=== PATIENT | male | born 1960 | race American Indian/Alaskan Native ===

== ENCOUNTER 2016-12-10 14:33 | Emergency (ER) | payer BC ==
[2016-12-10 15:31] LABS: Bacteria,Urine 1+ /HPF (Negative); Bilirubin,Urine NEG (Negative); Blood,Urine SM (Negative); Ketones,Urine TR mg/dL (Negative); Leukocyte Esterase,Urine NEG (Negative); Mucus,Urine FEW /HPF; Nitrite,Urine NEG (Negative)
[2016-12-10 15:44] LABS: Basophils % (Auto) 0.4 % (0.0-1.8); Hematocrit 35.1 % (35.5-45.6); Hemoglobin 11.6 gm/dl (11.8-15.2); Mean Corpuscular HGB Conc 33 % (32-34); Mean Corpuscular Hemoglobin 28 pg (28-32); Mean Corpuscular Volume 85 fl (84-94); Platelet Count 268 K/mm3 (140-440); Red Blood Count 4.14 M/mm3 (3.65-5.03); Red Cell Distribution Width 13.3 % (13.2-15.2); White Blood Count 12.5 K/mm3 (4.5-11.0)
[2016-12-10 16:04] LABS: Anion Gap 18 mmol/L; Blood Urea Nitrogen 21 mg/dL (9-20); Calcium 8.8 mg/dL (8.4-10.2); Carbon Dioxide 29 mmol/L (22-30); Chloride 92.4 mmol/L (98-107); Glucose 322 mg/dL (75-100); Potassium 3.7 mmol/L (3.6-5.0); Sodium 136 mmol/L (137-145)
[2016-12-11] MEDS ORDERED: NACL 0.9% 1000 ML 1,000 ML IV ONE (02:09)
[2016-12-11] MEDS ORDERED: ALUM-MAG HYDROX-SIMETH 200-200-20MG/5ML PO ONE (02:19)
[2016-12-11] MEDS ORDERED: ZOFRAN IV ONE (02:19)
[2016-12-11] MEDS ORDERED: BENADRYL IV ONE (02:19)
[2016-12-11] MEDS ORDERED: REGLAN IV ONE (02:19)
[2016-12-11] MEDS ORDERED: LIDOCAINE VISCOUS 2% PO ONE (02:19)
--- NOTE | 2016-12-11 05:15 | Emergency Department Report ---
ED N/V/D HPI - General Chief complaint: Nausea/Vomiting/Diarrhea Stated complaint: CHEST PAIN/MACIEJ Time Seen by Provider: 12/11/16 01:40 Source: patient, family, old records reviewed Mode of arrival: Ambulatory Limitations: No Limitations - History of Present Illness Initial comments: 56-year-old male with a past medical history of GERD, CVA, diabetes, and hypertension presents to the hospital with continued vomiting. I admitted patient on December 05 for coffee-ground emesis, and burning chest pain. Patient unremarkable CT. Patient underwent endoscopy which was normal. Patient also had guaiac-negative brown stool and a normal H&H. Patient was discharged home later that day on Protonix. Patient states he had Protonix at home. No medication for nausea vomiting were prescribed. Patient states by the next day he began to feel bad again. Patient has a constant burning in his mid chest that worsens at times causing him to feel short of breath. Patient on average vomits 3 times a day. No gross blood. Last bowel movement was one week ago. No abdominal pain reported. - Related Data Home Medications Medication Instructions Recorded Confirmed Last Taken Glimepiride [Amaryl] 4 mg PO DAILY 12/11/16 12/11/16 12/11/16 Lisinopril [Zestril] 5 mg PO QDAY 12/11/16 12/11/16 12/11/16 Pravastatin (Nf) [Pravachol] 20 mg PO QHS 12/11/16 12/11/16 12/11/16 metFORMIN [Glucophage] 500 mg PO BID 12/11/16 12/11/16 12/11/16 Previous Rx's Medication Instructions Recorded Last Taken Type Pantoprazole [Protonix TAB] 40 mg PO QDAY #30 tablet 12/05/16 12/11/16 Rx Mag Hydrox/Al Hydrox/Simeth 20 ml PO QID PRN #1 bottle 12/11/16 Unknown Rx [Maalox Advanced Suspension] Metoclopramide [Reglan] 10 mg PO TID PRN #30 tab 12/11/16 Unknown Rx traMADol [Ultram 50 MG tab] 50 mg PO Q6HR PRN #20 tablet 12/11/16 Unknown Rx Allergies Allergy/AdvReac Type Severity Reaction Status Date / Time No Known Allergies Allergy Verified 12/10/16 15:02 ED Review of Systems ROS: Stated complaint: CHEST PAIN/MACIEJ Other details as noted in HPI Comment: All other systems reviewed and negative Other: Constitutional: No fevers chills or weight loss Eyes: No eye pain visual changes or discharge ENT: No ear pain or throat pain Neck: Denies pain Respiratory: Denies cough wheezing Cardiovascular: Denies palpitations, syncope GI: As per HPI : Denies dysuria Musculoskeletal: Denies back pain, joint swelling Skin: Denies rash, lesions, erythema Neurologic: Denies headache, numbness, weakness Psychiatric: Denies suicidal ideation, hallucinations Hematological/lymphatic: Denies easy bruising, lymphadenopathy ED Past Medical Hx - Past Medical History Hx Hypertension: Yes Hx CVA: Yes Hx Heart Attack/AMI: No Hx Congestive Heart Failure: No Hx Diabetes: Yes Hx Deep Vein Thrombosis: No Hx Pulmonary Embolism: No Hx GERD: Yes Hx Liver Disease: No Hx Seizures: No Hx Asthma: No Hx COPD: No Hx Tuberculosis: No Hx Dementia: No Hx HIV: No Additional medical history: GI blockage - Surgical History Past Surgical History?: No Hx Coronary Stent: No Hx Pacemaker: No Hx Internal Defibrillator: No - Social History Smoking Status: Current Every Day Smoker Substance Use Type: None - Medications Home Medications: Home Medications Medication Instructions Recorded Confirmed Last Taken Type Pantoprazole [Protonix TAB] 40 mg PO QDAY #30 tablet 12/05/16 12/11/16 12/11/16 Rx Glimepiride [Amaryl] 4 mg PO DAILY 12/11/16 12/11/16 12/11/16 History Lisinopril [Zestril] 5 mg PO QDAY 12/11/16 12/11/16 12/11/16 History Mag Hydrox/Al Hydrox/Simeth 20 ml PO QID PRN #1 bottle 12/11/16 Unknown Rx [Maalox Advanced Suspension] Metoclopramide [Reglan] 10 mg PO TID PRN #30 tab 12/11/16 Unknown Rx Pravastatin (Nf) [Pravachol] 20 mg PO QHS 12/11/16 12/11/16 12/11/16 History metFORMIN [Glucophage] 500 mg PO BID 12/11/16 12/11/16 12/11/16 History traMADol [Ultram 50 MG tab] 50 mg PO Q6HR PRN #20 tablet 12/11/16 Unknown Rx ED Physical Exam - General Limitations: No Limitations - Other Other exam information: General: No limitations, patient is alert in no acute distress Head exam: Atraumatic, normocephalic Eyes exam: Normal appearance, pupils equal reactive to light, extraocular movements intact ENT: Moist mucous membrane, normal oropharynx Neck exam: Normal inspection, full range of motion, no meningismus nontender Respiratory exam: Clear to auscultation bilateral, no wheezes, rales, crackles Cardiovascular: Normal rate and rhythm, normal heart sounds Abdomen: Soft, nondistended, and nontender, with normal bowel sounds, no rebound, or guarding Extremity: Full range of motion normal inspection no deformity Back: Normal Inspection, full range of motion, no tenderness Neurologic: Alert, oriented x3, cranial nerves intact, no motor or sensory deficit Psychiatric: normal affect, normal mood Skin: Warm, dry, intact ED Course Vital Signs 12/10/16 12/10/16 12/11/16 15:04 22:59 00:36 Temperature 97.9 F 98.9 F Pulse Rate 95 H 94 H 86 Respiratory 20 20 19 Rate Blood Pressure 131/84 127/83 O2 Sat by Pulse 99 97 99 Oximetry 12/11/16 12/11/16 12/11/16 00:40 00:46 00:50 Temperature Pulse Rate 87 95 H 110 H Respiratory 17 26 H 26 H Rate Blood Pressure 147/84 147/84 O2 Sat by Pulse 100 94 99 Oximetry 12/11/16 12/11/16 12/11/16 00:56 01:00 01:06 Temperature Pulse Rate 74 74 78 Respiratory 13 15 19 Rate Blood Pressure 136/86 O2 Sat by Pulse 97 98 93 Oximetry 12/11/16 12/11/16 12/11/16 01:10 01:15 01:20 Temperature Pulse Rate 84 85 78 Respiratory 18 16 19 Rate Blood Pressure 136/86 124/81 124/81 O2 Sat by Pulse 95 96 97 Oximetry 12/11/16 12/11/16 12/11/16 01:26 01:30 01:36 Temperature Pulse Rate 90 80 82 Respiratory 17 18 16 Rate Blood Pressure 124/81 110/70 110/70 O2 Sat by Pulse 97 96 98 Oximetry 12/11/16 12/11/16 12/11/16 01:40 01:45 01:50 Temperature Pulse Rate 84 83 Respiratory 15 15 13 Rate Blood Pressure 110/70 126/81 126/81 O2 Sat by Pulse 98 98 97 Oximetry 12/11/16 12/11/16 12/11/16 01:56 02:00 02:06 Temperature Pulse Rate 101 H 94 H 94 H Respiratory 19 20 19 Rate Blood Pressure 126/81 126/73 126/73 O2 Sat by Pulse 97 95 99 Oximetry 12/11/16 12/11/16 12/11/16 02:10 02:15 02:20 Temperature Pulse Rate 98 H 92 H 87 Respiratory 18 18 29 H Rate Blood Pressure 126/73 129/70 129/70 O2 Sat by Pulse 97 94 98 Oximetry 12/11/16 12/11/16 12/11/16 02:26 02:30 02:36 Temperature Pulse Rate 85 97 H 97 H Respiratory 17 20 23 Rate Blood Pressure 129/70 138/107 138/107 O2 Sat by Pulse 97 98 97 Oximetry 12/11/16 12/11/16 12/11/16 02:40 02:46 02:50 Temperature Pulse Rate 88 81 86 Respiratory 15 17 16 Rate Blood Pressure 138/107 138/107 138/107 O2 Sat by Pulse 97 98 99 Oximetry 12/11/16 12/11/16 12/11/16 02:56 03:00 03:06 Temperature Pulse Rate 81 87 79 Respiratory 12 17 12 Rate Blood Pressure 138/107 138/107 138/107 O2 Sat by Pulse 100 100 97 Oximetry 12/11/16 12/11/16 12/11/16 03:10 03:15 03:20 Temperature Pulse Rate 76 82 84 Respiratory 17 14 19 Rate Blood Pressure 138/107 93/49 93/49 O2 Sat by Pulse 96 99 97 Oximetry 12/11/16 12/11/16 12/11/16 03:26 03:30 03:36 Temperature Pulse Rate 85 86 82 Respiratory 17 15 15 Rate Blood Pressure 93/49 88/48 88/48 O2 Sat by Pulse 97 98 96 Oximetry 12/11/16 12/11/16 12/11/16 03:40 03:45 03:50 Temperature Pulse Rate 99 H 81 82 Respiratory 17 18 19 Rate Blood Pressure 88/48 109/70 109/70 O2 Sat by Pulse 97 97 96 Oximetry 12/11/16 12/11/16 12/11/16 03:56 04:00 04:06 Temperature Pulse Rate 102 H 90 80 Respiratory 15 17 17 Rate Blood Pressure 109/70 136/83 136/83 O2 Sat by Pulse 98 97 98 Oximetry 12/11/16 12/11/16 12/11/16 04:10 04:15 04:20 Temperature Pulse Rate 84 89 90 Respiratory 17 17 Rate Blood Pressure 136/83 130/80 136/83 O2 Sat by Pulse 97 98 100 Oximetry 12/11/16 12/11/16 12/11/16 04:26 04:30 04:36 Temperature Pulse Rate Respiratory Rate Blood Pressure 136/83 151/90 151/90 O2 Sat by Pulse 98 97 98 Oximetry 12/11/16 12/11/16 12/11/16 04:40 04:46 04:50 Temperature Pulse Rate Respiratory Rate Blood Pressure 151/90 161/123 161/123 O2 Sat by Pulse 96 97 97 Oximetry - Reevaluation(s) Reevaluation #1: 12/11/16 During my initial evaluation patient had episode of shortness of breath. Patient states he had extreme burning in his chest and felt better when he lifts his arms up. Symptoms subsided after a couple seconds. Reevaluation #2: 12/11/16 05:26 In the ED patient was treated with Reglan, Benadryl, Zofran, Maalox, viscous lidocaine, insulin, and normal saline 12/11/16 05:26 ED Medical Decision Making - Lab Data Result diagrams: 12/10/16 15:26 12/10/16 15:26 Lab Results 12/10/16 12/10/16 12/10/16 Range/Units 15:17 15:26 15:26 WBC 12.5 H (4.5-11.0) K/mm3 RBC 4.14 (3.65-5.03) M/mm3 Hgb 11.6 L (11.8-15.2) gm/dl Hct 35.1 L (35.5-45.6) % MCV 85 (84-94) fl MCH 28 (28-32) pg MCHC 33 (32-34) % RDW 13.3 (13.2-15.2) % Plt Count 268 (140-440) K/mm3 Lymph % (Auto) 17.7 (13.4-35.0) % Centre % (Auto) 8.7 H (0.0-7.3) % Eos % (Auto) 0.0 (0.0-4.3) % Baso % (Auto) 0.4 (0.0-1.8) % Lymph # 2.2 (1.2-5.4) K/mm3 Centre # 1.1 H (0.0-0.8) K/mm3 Eos # 0.0 (0.0-0.4) K/mm3 Baso # 0.1 (0.0-0.1) K/mm3 Seg Neutrophils % 73.2 H (40.0-70.0) % Seg Neutrophils # 9.2 H (1.8-7.7) K/mm3 Sodium 136 L (137-145) mmol/L Potassium 3.7 (3.6-5.0) mmol/L Chloride 92.4 L (98-107) mmol/L Carbon Dioxide 29 (22-30) mmol/L Anion Gap 18 mmol/L BUN 21 H (9-20) mg/dL Creatinine 1.0 (0.8-1.5) mg/dL Estimated GFR > 60 ml/min BUN/Creatinine Ratio 21.00 % Glucose 322 H (75-100) mg/dL POC Glucose (70-105) Calcium 8.8 (8.4-10.2) mg/dL Urine Color Yellow (Yellow) Urine Turbidity Clear (Clear) Urine pH 5.0 (5.0-7.0) Ur Specific [place] 1.025 (1.003-1.030) Urine Protein 100 mg/dl (Negative) mg/dL Urine Glucose (UA) 150 (Negative) mg/dL Urine Ketones Tr (Negative) mg/dL Urine Blood Sm (Negative) Urine Nitrite Neg (Negative) Urine Bilirubin Neg (Negative) Urine Urobilinogen 4.0 (<2.0) mg/dL Ur Leukocyte Esterase Neg (Negative) Urine WBC (Auto) 2.0 (0.0-6.0) /HPF Urine RBC (Auto) 6.0 (0.0-6.0) /HPF U Epithel Cells (Auto) < 1.0 (0-13.0) /HPF Urine Bacteria (Auto) 1+ (Negative) /HPF Hyaline Casts 3 /LPF Urine Mucus Few /HPF 12/11/16 12/11/16 Range/Units 02:18 04:56 WBC (4.5-11.0) K/mm3 RBC (3.65-5.03) M/mm3 Hgb (11.8-15.2) gm/dl Hct (35.5-45.6) % MCV (84-94) fl MCH (28-32) pg MCHC (32-34) % RDW (13.2-15.2) % Plt Count (140-440) K/mm3 Lymph % (Auto) (13.4-35.0) % Centre % (Auto) (0.0-7.3) % Eos % (Auto) (0.0-4.3) % Baso % (Auto) (0.0-1.8) % Lymph # (1.2-5.4) K/mm3 Centre # (0.0-0.8) K/mm3 Eos # (0.0-0.4) K/mm3 Baso # (0.0-0.1) K/mm3 Seg Neutrophils % (40.0-70.0) % Seg Neutrophils # (1.8-7.7) K/mm3 Sodium (137-145) mmol/L Potassium (3.6-5.0) mmol/L Chloride (98-107) mmol/L Carbon Dioxide (22-30) mmol/L Anion Gap mmol/L BUN (9-20) mg/dL Creatinine (0.8-1.5) mg/dL Estimated GFR ml/min BUN/Creatinine Ratio % Glucose (75-100) mg/dL POC Glucose 261 H 112 H (70-105) Calcium (8.4-10.2) mg/dL Urine Color (Yellow) Urine Turbidity (Clear) Urine pH (5.0-7.0) Ur Specific [place] (1.003-1.030) Urine Protein (Negative) mg/dL Urine Glucose (UA) (Negative) mg/dL Urine Ketones (Negative) mg/dL Urine Blood (Negative) Urine Nitrite (Negative) Urine Bilirubin (Negative) Urine Urobilinogen (<2.0) mg/dL Ur Leukocyte Esterase (Negative) Urine WBC (Auto) (0.0-6.0) /HPF Urine RBC (Auto) (0.0-6.0) /HPF U Epithel Cells (Auto) (0-13.0) /HPF Urine Bacteria (Auto) (Negative) /HPF Hyaline Casts /LPF Urine Mucus /HPF - EKG Data -: EKG Interpreted by Me (sinus rhythm rate 94) - Medical Decision Making Pt reports feeling "a lot better" with ED treatment. He will be discharged home on medications for GERD. No signs of acute hemorrhage or vomiting in the ED. - Differential Diagnosis GERD, dehydration, infection Critical Care Time: No Critical care attestation.: If time is entered above; I have spent that time in minutes in the direct care of this critically ill patient, excluding procedure time. ED Disposition Clinical Impression: GERD (gastroesophageal reflux disease), Diabetes, Nausea and vomiting Disposition: DISCHARGED TO HOME OR SELFCARE Is pt being admited?: No Does the pt Need Aspirin: No Condition: Stable Instructions: Gastroesophageal Reflux Disease (ED), Diabetes Mellitus Type 2 in Adults (ED) Additional Instructions: Take the medication as prescribed. Return if symptoms worsen. Prescriptions: Mag Hydrox/Al Hydrox/Simeth [Maalox Advanced Suspension] 20 ml PO QID PRN #1 bottle PRN Reason: Indigestion Metoclopramide [Reglan] 10 mg PO TID PRN #30 tab PRN Reason: Nausea And Vomiting traMADol [Ultram 50 MG tab] 50 mg PO Q6HR PRN #20 tablet PRN Reason: Pain Referrals: PRIMARY CARE, [Primary Care Provider] - 3-5 Days PAMELA YIN MD [Staff Physician] - 3-5 Days (GI doctor) Time of Disposition: 05:35
[2016-12-11 05:34] VITALS: BP 130/64
== END 2016-12-11 06:14 | disposition home or self-care (01) ==
LOC: ED 14:33
DX: K21.9 Gastro-esophageal reflux disease without esophagitis (principal); R11.2 Nausea with vomiting, unspecified; E11.9 Type 2 diabetes mellitus without complications; Z86.73 Personal history of transient ischemic attack (TIA), and cerebral infarction without residual deficits; F17.200 Nicotine dependence, unspecified, uncomplicated
CPT/HCPCS: 36415; 80048; 81001; 82962; 85025; 93005; 93010; 96361; 96374; 96375; 99284; J1200; J2405; J2765; J7030; J1815